=== PATIENT | male | born 1945 | race Caucasian/White ===

== ENCOUNTER 2021-12-15 00:27 | Outpatient (CLI) | payer MEDICARE, OTHER, SELFPAY ==
--- NOTE | 2021-12-15 11:00 | DI.NM_ITS ---
Exam(s) NM BONE SCAN WHOLE BODY GRP EXAM: NM BONE SCAN WHOLE BODY GRP CLINICAL HISTORY: ALKALINE PHOSPHATASE RAISED, R74.8. TECHNIQUE: Injected Dose: 24.5 mCi Tc-99m MDP COMPARISON: No prior exams were available for comparison. This is the only study in our PACS. FINDINGS: There is focal uptake in the anterior aspect of 4 contiguous right ribs which appear to be the 5th, 6 , 7th, and 8th ribs. This is most probably related to trauma given the distribution. There is also a focus of increased uptake seen in the anterior aspect of the left 2nd rib. There is no abnormal uptake in the skull. Uptake on both sides the cervical spine is probably relate d to facet arthropathy. There is uptake at multiple levels in the spinal column. There appears to be uptake on both sides of what appears to be T3 vertebral body. Also on both sides of what is either T9 or T10. Also on the right side of T12 and in the mid lumbar spine at L3-4 level as well as on the right side at L4 level. There is no abnormal uptake in the pelvis and sacroiliac joints. There is no abnormal uptake seen in the right hip. There is uptake seen in the greater trochanter of the left hip although this patient 's left thumb is directly ower overlying this area and this may indeed be related to degenerative monica nges in the left thumb metacarpophalangeal joint. There is no abnormal uptake seen in the lower extremities below this level. No abnormal uptake seen in the upper extremities with the exception of some degenerative changes in the wrists and hands. IMPRESSION: 1. Findings in the right rib cage is described above her most probably posttraumatic and consistent w ith fractures at the costochondral junctions anteriorly in the right 5th through 8th ribs, inclusive. A solitary similar focus of increased uptake is seen in the left rib cage in the anterior left 2nd rib which may or may not be related to trauma or other pathology, including costal chondritis. 2. Other findings described above in the spinal column are possibly concerning and cannot be assumed to be posttraumatic. Plain films of the thoracic spine and lumbar spine are recommended. Also cerv ical spine. Also plain films of the left hip (see above). DATA REPOSITORY:
== END 2021-12-15 00:47 ==
PROVIDERS: PCP Nurse Practitioner Family; Visit Provider Family Medicine
DX: R74.8 Abnormal levels of other serum enzymes (principal); R93.7 Abnormal findings on diagnostic imaging of other parts of musculoskeletal system
CPT/HCPCS: 78306

== ENCOUNTER → 2024-01-24 12:35 | Outpatient (BNVA) | payer MEDICARE, SELFPAY | PROVIDERS: PCP Family Medicine; Referring Provider Family Medicine; Visit Provider Physician Assistant Surgical | DX: J44.9 Chronic obstructive pulmonary disease, unspecified (principal); G47.33 Obstructive sleep apnea (adult) (pediatric); F17.210 Nicotine dependence, cigarettes, uncomplicated | CPT/HCPCS: 99214 ==

== ENCOUNTER → 2024-05-27 02:17 | Outpatient (CLI) | payer MEDICARE, SELFPAY ==
--- NOTE | 2024-05-27 | DI.NM_ITS ---
APPROVED REPORT Exam: Pharmacologic Patient Location: Out-Patient Room/Bed: Stress Nurse: Katie Mc RN Ordering Provider:CORTEZ WOODWARD, Contact Number: [phone] BMI: 32.00 Baseline Rhythm: Sinus Bradycardia Comment: 1st degree AV block Indications: Chest pain, Medical History Medical History: Aortic aneurysm, aortic valve stenosis, CAD, edema, aortic valve replacement, CABG X 1, bilateral deafness, depression, PLMD, HFpEF, HLD, tobacco use Cardiac Medications: Albuterol sulfate, allopurinol, aspirin, atorvastatin, citalopram, clonazepam, c yclobenzaprine, advair, gabapentin, ipratropium bromide-albuterol, losartan, magnesium gluconate, mid odrine, modafinil, potassium chloride, stiolto, torsemide, warfarin, Allergies: Shellfish, codeine, penicillins Cardiac Risk Factors: Family hx, HLD, COPD, CVD, smoker Previous Cardiac Procedures: Ascending aorta replacement, CABG x1, aortic valve replacement Pretest Chest Pain Characteristics: None Exercise History: Indeterminate Physical Disabilities: Hx falls/ syncope Lung Sounds: Fine crackles RLB Heart Sounds: Bradycardia Stress Test Details Test: Pharmacologic stress testing performed using 0.4 mg of regadenoson per 5 mL given IV over 10 s econds. Reason for pharmacologic stress test: physical limitation. Nuclear Acquisition: Rest Tc-99m/Stress Tc-99m 1 day Rest Isotope: Tc-99m Sestamibi. Dose: 9.5 Date: 05/27/2024 Injection Time: 0803 Stress Isotope: Tc-99m Sestamibi. Dose: 30.4 Date: 05/27/2024 Injection Time: 1030 HR Resting HR Supine: 54 bpm Max Heart Rate (APMHR): 143.466518 bpm Target HR (85% APMHR): 121.308343 bpm Max HR Achieved: 81 bpm % of APMHR: 56.64 Recovery HR: 77 bpm BP Resting BP Supine: 188/88 mmHg Max BP: 192/76 mmHg Recovery BP: 140/70 mmHg ECG Resting ECG: Sinus Bradycardia, 1st degree AV block Ectopy: None Stress ECG: Sinus Rhythm, 1st degree AV block ST Change: Nondiagnostic low heart rate Arrhythmia: None Recovery ECG: Sinus Rhythm, 1st degree AV block Recovery ST Change: Nondiagnostic low heart rate Recovery Arrhythmia: None Clinical Stress Symptoms: Mod SOB Angina Score: None Rate Pressure Product: [id number] Stress ECG Conclusion 1. Resting electrocardiogram showed left ventricular hypertrophy with repolarization abnormalities 2. Patient underwent testing using pharmacologic stress with regadenoson 3. Peak heart rate achieved was 57% of maximal predicted for age 4. The electrocardiographic portion of the test was nondiagnostic 5. See MPI report MPI Conclusion Myocardial perfusion is normal. There is no ischemia or evidence of prior infarction EF 55%, normal wall motion Radiologist Interpretation Radiologist agrees with [employer]'s Interpretation. Radiologist Interpretation by: Renae Reyna MD Interpretation Date/Time: 05/27/2024 15:29:19
[2024-05-27] MEDS: Regadenoson 0.4 MG/5 ML SYR IVP (12:38)
== END ==
PROVIDERS: PCP Family Medicine; Visit Provider Registered Nurse
DX: R07.9 Chest pain, unspecified (principal)
CPT/HCPCS: 78452; 93016; 93018; 93017; J2785